=== PATIENT | male | born 1950 | race African-American/Black ===

== ENCOUNTER 2019-01-17 10:57 | Emergency (ER) | payer MEDICARE, MEDICAID, OTHER ==
[~2019-01-17] VITALS: Ht 188 cm; Wt 109.0 kg
[~2019-01-17 10:57] MED LIST: AMLO10TA80 PO; dilantin PO
[2019-01-17] MEDS ORDERED: SODIUM CHLORIDE 0.9% 1,000 ML IV ONE (11:30)
[2019-01-17] MEDS ORDERED: LEVETIRACETAM 1000MG/100ML 100 ML IV ONE (11:30)
[2019-01-17 11:49] LABS: HEMATOCRIT. 39.3 % (42.0-52.0); HEMOGLOBIN. 13.2 g/dL (14.0-18.0); LYMPHOCYTES % 21.7 % (20.0-50.0); MEAN CORPUSCULAR HEMOGLOBIN 28.4 pg (28.0-32.0); MEAN PLATELET VOLUME 9.1 fl (7.4-10.4); MONOCYTES % 9.7 % (2.0-8.0); NEUTROPHILS % 66.6 % (40.0-76.0); PLATELET 178 x1000/uL (130-400); RED BLOOD CELL COUNT 4.63 mill/uL (4.7-6.1); RED CELL DISTRIBUTION WIDTH 13.9 % (11.6-14.6)
[2019-01-17 11:56] LABS: CHLORIDE 110 mEq/L (98-107)
[2019-01-17 14:08] VITALS: BP 167/80
== END 2019-01-17 14:14 | disposition home or self-care (01) ==
LOC: ER 10:57
DX: G40.909 Epilepsy, unspecified, not intractable, without status epilepticus (principal); I10 Essential (primary) hypertension; F17.210 Nicotine dependence, cigarettes, uncomplicated; Z87.828 Personal history of other (healed) physical injury and trauma; Z98.890 Other specified postprocedural states
CPT/HCPCS: 36415; 80053; 83605; 85025; 96365; 96366; 99283; J1953; J7030